=== PATIENT | female | born 1995 | race Caucasian/White ===

== ENCOUNTER 2021-01-08 09:22 | Emergency (ER) | payer BC ==
[2021-01-08 09:52] LABS: HEMOGLOBIN 14.1 gm/dl (12.3-15.3); RED BLOOD COUNT 4.76 M/UL (4.00-5.10)
[2021-01-08 10:12] LABS: BUN/CREATININE RATIO 19 (0-10)
[2021-01-08] MEDS ORDERED: OMNICEF 300 MG300 MG PO (13:37)
== END 2021-01-08 14:00 | disposition home or self-care (01) ==
LOC: ER1 09:22
PROVIDERS: Emergency Medicine
DX: N39.0 Urinary tract infection, site not specified (principal)
CPT/HCPCS: 80053; 81001; 83690; 84703; 85025; 99284; J0696; J2270; J2405